=== PATIENT | male | born 1990 | race Caucasian/White ===

== ENCOUNTER 2018-05-19 16:51 | Emergency (ER) | payer OTHER ==
[~2018-05-19] VITALS: Ht 162.6 cm; Wt 111.0 kg
[2018-05-19 17:13] LABS: ABSOLUTE EOSINOPHILS 0.1 thou/uL (0.0-0.7); ABSOLUTE LYMPHOCYTES 2.4 thou/uL (0.8-5.3); ABSOLUTE MONOCYTES 0.9 thou/uL (0.0-1.2); ABSOLUTE NEUTROPHILS 4.8 thou/uL (1.6-8.1); BASOPHILS 0.4 %; EOSINOPHILS 1.2 %; HEMATOCRIT 50.3 % (42.0-52.0); LYMPHOCYTES 28.9 %; MCH 27.9 pg (26.0-34.0); MCHC 33.8 g/dL (28.0-37.0); MCV 82.5 fL (80.0-100.0); MONOCYTES 11.4 %; MPV 7.9 fl. (7.2-11.1); NUCLEATED RBCS 0 /100WBC; PLATELET COUNT* 208 thou/uL (150-400); POLYS 58.1 %; RDW-CV 14.1 % (10.5-14.5); WBC 8.2 thou/uL (4.0-11.0)
[2018-05-19 17:27] LABS: URINE BILIRUBIN NEGATIVE (Negative); URINE BLOOD TRACE (Negative); URINE CLARITY CLEAR; URINE COLOR YELLOW; URINE GLUCOSE-RANDOM NEGATIVE (Negative); URINE KETONES NEGATIVE (Negative); URINE LEUKOCYTES-REFLEX NEGATIVE (Negative); URINE NITRITE-REFLEX NEGATIVE (Negative); URINE PROTEIN NEGATIVE (Negative); URINE SPECIFIC GRAVITY >= 1.030 (1.005-1.030); URINE UROBILINOGEN 0.2 E.U./dl (0.2-1.0)
[2018-05-19 17:30] LABS: ALBUMIN 4.1 g/dL (3.4-5.0); ALKALINE PHOSPHATASE 107 U/L (46-116); ANION GAP 8 mmol/L (7-16); BUN 11 mg/dL (7-18); CALCIUM 9.3 mg/dL (8.5-10.1); CHLORIDE 101 mmol/L (98-107); CO2 28 mmol/L (21-32); CREATININE 1.1 mg/dL (0.6-1.3); GLUCOSE 142 mg/dL (70-99); LIPASE 105 U/L (73-393); POTASSIUM 4.2 mmol/L (3.5-5.1); SGOT 16 U/L (15-37); SGPT 45 U/L (30-65); SODIUM 137 mmol/L (136-145); TOTAL BILIRUBIN 0.5 mg/dL (<0.1-1.0); TOTAL PROTEIN 8.5 g/dL (6.4-8.2); TROPONIN-I LEVEL <0.06 ng/mL (<0.06)
[2018-05-19 17:31] LABS: INFLUENZA A ANTIGEN None Detected (None Detect); INFLUENZA B ANTIGEN None Detected (None Detect)
[2018-05-19] MEDS ORDERED: ONDANSETRON HCL4 M2 PO (17:55)
[2018-05-19] MEDS ORDERED: BENTYL 20 MG TA20 M1 PO (17:55)
[2018-05-19] MEDS ORDERED: PRILOSEC 20 MG20 MG PO (17:55)
[2018-05-19 18:07] VITALS: BP 106/62
--- NOTE | 2018-05-20 10:47 | EKG ---
[place] [address] ELECTROCARDIOGRAM REPORT Name: JORDAN WEBER [id number] Admission: 05/19/18 Attend Phys: Discharge: 05/19/18 Date of : [birth year] Report #: [id number] THIS REPORT FOR: //name// [facility] ED Test Date: 2018-05-19 Test Time: 16:58:13 Pat Name: JORDAN WEBER Department: Room: Gender: M Data Modeler: Yareli : 1990 Requested By: Lizzy Hernández Order Number: [id number] MD: Abdulaziz Rosa Measurements Intervals [place] Rate: 103 P: 9 FL: 143 QRS: 44 QRSD: 88 T: 52 QT: 315 QTc: 413 Interpretive Statements Sinus tachycardia Nondiagnostic inferior Q's No previous ECG available for comparison Electronically Signed On 05-20-2018 10:47:05 CDT by Abdulaziz Rosa [email or web address] <ELECTRONICALLY SIGNED> By: Abdulaziz Rosa MD, [facility] 05/20/18 1047 [id number] 1658 Abdulaziz Rosa MD, FACC /EPI
== END 2018-05-19 18:08 | disposition home or self-care (01) ==
LOC: M.ERS 16:51
PROVIDERS: Nurse Practitioner Family
DX: K21.9 Gastro-esophageal reflux disease without esophagitis (principal); K52.9 Noninfective gastroenteritis and colitis, unspecified